=== PATIENT | female | born 1970 | race Caucasian/White ===

== ENCOUNTER 2019-07-18 12:10 | Outpatient (CLI) | payer BC, SELFPAY ==
[2019-07-18 13:00] LABS: Eosinophils # 0.3 10^3/uL (0.0-0.8); Eosinophils % 4.5 %; Hematocrit 39.4 % (37.0-47.0); Hemoglobin 13.3 g/dL (11.5-15.3); Lymphocytes # 1.7 10^3/uL (0.8-4.8); Lymphocytes % 28.5 %; Mean Corpuscular HGB Conc 33.8 g/dL (30.0-36.0); Mean Corpuscular Hemoglobin 32.8 pg (28.0-34.0); Mean Corpuscular Volume 97.3 fL (81-99); Mean Platelet Volume 9.1 fL (7.4-10.4); Monocytes # 0.3 10^3/uL (0.2-0.9); Monocytes % 5.2 %; Neutrophils # 3.6 10^3/uL (1.8-7.7); Neutrophils % 61.5 %; Nucleated Red Blood Cells % 0 %; Platelet Count 556 10^3/cmm (130-400); Red Blood Count 4.05 10^6/uL (4.1-5.3); Red Cell Distribution Width 12.5 % (12.1-15.1); White Blood Count 5.8 10^3/uL (4.0-10.0)
[2019-07-18 13:17] LABS: Ferritin 141 ng/mL (15-150); Iron 215 ug/dL (37-145)
[2019-07-18 13:51] LABS: Percent Saturation 101.4 % (20-50); Total Iron Binding Capacity 212 mcg/dl; Unsaturated Iron Binding -3 ug/dL (112-347)
--- NOTE | 2019-07-18 14:39 | ONC FU_ITS ---
Dr. Red follow up note Patient: Margie Lyle Unit #: [id number]: 1970 Dicatated By: Lizzeth Red M.D.Date of Visit:Jul 18, 2019 Onc Med Follow-up/Prog Note History of Present Illness: Mrs. Margie Lyle is a 49-year-old female with history of iron deficiency anemia which responded very well to oral iron and recently done CBC in her primary care physician's office on 01/22/2019 showed white blood count 7.1 hemoglobin 14.7 crit 42.8 MCV 96.8 platelets 551,000 iron 224 normal being 45-160 At that time her oral iron supplement were discontinued. As per patient she was first told about thrombocytosis in December 2017 at that time her platelet count was around 550,000 with a normal hemoglobin and white blood cell but recently when she went to donate blood she was told about anemia and oral iron was given she responded very well to that with normalization of hemoglobin and in January 2019, oral iron was discontinued by her primary care physician. Patient denies any history of melena or hematochezia, patient denies any history of jaundice, patient denies any history of abdominal fullness, denies any history of lymphadenopathy, denies any history of night sweats or weight loss, denies any history of recurrent fever but she has history of chronic headaches, for which she underwent surgical procedure involving base of the skull/upper neck at [facility] She also has history of chronic back pain. No history of thrombosis no history of's skin rash or itching. EGD and colonoscopy done on 03/13/2019 showed reflux esophagitis, gastritis, duodenitis and colonoscopy showed few small diverticula in the sigmoid colon Came for follow-up, denies any specific complaints except easy bruising even with the slightest trauma especially on the arms and legs. But no gum bleed no nosebleed no hematuria or melena or hematochezia no petechiae. Patient is taking a lot of [id number]-snd-[id number] herbs for healthy hair and steroid-based inhalers for asthma. Denies taking aspirin or NSAID based medication in recent past but month ago she is to take it on a regular basis. Medications: Albuterol Sulfate 1 (108 (90 base) mcg/act) Aerosol Powder, Breath Activated Inhalation PRN, Iurdlprcqk-HVSH-Azqpyvbl 1 Tablet (of 50-325-40 mg) Oral PRN, Garlic 1 Capsule Oral daily, Ibuprofen 4 Tablet (of 200 mg) Oral b.i.d., Imitrex 1 Tablet (of 25 mg) Oral PRN, Levothyroxine Sodium 1 Tablet (of 137 mcg) Oral daily, Naproxen 1 Tablet (of 500 mg) Oral b.i.d., Olmesartan Medoxomil 1 Tablet (of 20 mg) Oral daily, Symbicort Aerosol Inhalation PRN, Vitamin E 1 Capsule Oral daily Allergies: Alpha gal syndrome, Codeine Sulfate, Penicillins, and Pistachios. Review of Systems: Constitutional - Appetite is fair and weight is stable. No fever, chills, no hot flashes or night sweats. Energy level is poor, ENMT - No sinus congestion/drainage. No mouth sores. No sore throat or difficulty swallowing, Hematologic/Lymphatic - Positive for easy bruising/bleeding, Respiratory - Positive for shortness of breath. No cough. No pleuritic pain or hemoptysis, Cardiovascular - No angina pain. No palpitations, Gastrointestinal - No nausea or vomiting. No heartburn or acid reflux. No diarrhea or constipation. No blood in the stool or black stools, Genitourinary (F) - No dysuria or hematuria. No urinary frequency. No urgency or incontinence, Musculoskeletal - Positive for joint pain, Neurologic - Positive for headache, dizziness, numbness, Psychiatric - No anxiety or depression. Positive for insomnia. Vital Signs: Performed on Jul 18, 2019 13:48 Height - 67.00 in Weight - 200.6 lbs (LOW) BSA - 2.02 sq.m BMI - 31.42 (HIGH) Temperature - 97.5 F (LOW) Pulse - 68 /min Respiration - 18 /min BP - 145/91 mm(hg) (HIGH) O2 Sat - 98 % Pain - 4 Performance Status: 0 - Fully active, able to carry on all predisease activities without restrictions. (ECOG) Physical Examination: ENMT - No oral exudates, ulcers, masses, thrush or mucositis. Oropharynx clear. Tongue normal, Respiratory - Lungs are clear to auscultation without rhonchi or wheezing, Cardiovascular - Regular rate and rhythm of heart, Abdomen - Non-tender, non-distended, Good bowel sounds. No guarding or rebound tenderness. No pulsatile masses, Extremities - no edema or rash or ecchymosis. Lab/Imaging: Test performed on Apr 25, 2019 10:37 Ferritin 173.0 ng/ml Iron 149 ug/dL % Iron Saturation 81.8 % UIBC 33 ug/dL WBC 7.6 10 3/uL RBC 4.24 10 6/uL HGB 13.6 g/dL HCT 40.3 % MCV 95.0 fl MCH 32.1 pg MCHC 33.7 g/dl RDW 11.6 % Platelet Count 507 10 3/cmm MPV 8.8 fl Manual Neutrophils Abs 3.9 10 3/cmm Manual Lymphocytes Abs 3.3 10 3/cmm Manual Monocytes Abs 0.2 10 3/cmm Manual Eosinophils Abs 0.2 10 3/cmm Manual Segs % 49 % Manual Bands % 2.0 % Manual Lymphs % 38.0 % Manual Monos % 3.0 % Manual Eos % 3 % Atypical Lymphs % 5.0 % Platelet Estimate INCREASED Test performed on Feb 26, 2019 09:40 Folate, Serum 16.3 ng/mL Vitamin B12 685 pg/mL ESR (Sed Rate) 5 mm/hr Neutrophils 3.6 10 3/cmm Lymphocytes 2.6 10 3/cmm Monocytes 0.4 10 3/cmm Eosinophils 0.4 10 3/cmm Basophils 0.0 10 3/cmm Neutrophil % 50.7 % Lymphocyte % 36.9 % Monocyte % 6.3 % Eosinophil % 6.1 % Basophils % 0.0 % Impression: Isolated mild thrombocytosis, etiology unclear could be multifactorial including reactive to chronic GI blood loss as patient was recently diagnosed with iron deficiency anemia and responded well to oral iron or chronic inflammation 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 And other possibility could be underlying myeloproliferative disorder like CML, polycythemia vera, or essential thrombocytosis but less likely .History of iron deficiency anemia, successfully treated with oral iron Plan: Discussed with patient regarding her labs white blood count 5.8 hemoglobin 13.3 crit 39.4 platelets 556,000 compared to 507,000 on 04/25/2019, iron studies showed iron saturation 101.4 ferritin 141 iron 215 Clinically, patient is doing well with no new signs symptom. Follow-up lab shows persistent mild thrombocytosis with normal white blood count and hemoglobin and normal iron studies. Etiology of mild thrombocytosis remained unclear could be due to chronic inflammation patient has initial sinusitis or underlying mild COPD or early myeloproliferative disorder or due to medication like tipi-esf-fswcgrs items or steroid-based inhalers. Patient was advised to stop all the medications except olmesartan, and levothyroxine. And she can take inhaler on as-needed basis. She was advised not to take naproxen and other type of NSAIDs or aspirin-based medicine. We will repeat her CBC in 2 weeks in her PMDs office to see if there is any improvement in her platelet counts. Otherwise she will return to clinic in 2 months and will also monitor her for easy bruising and etiology is unclear could be due to medications underlying hematological disorder but less likely, as wall globin 3 workup done by her PMD include factor V mutation it was not detected. PT/PTT was within normal limits. C-reactive protein was 1.2. Patient return to clinic in 2 months with CBC. And platelet count continued to go up then will consider workup for myeloproliferative disorder like JAK2, mutation Signed By: Lizzeth Red M.D. <<Signature on File>>
== END 2019-07-18 12:11 | disposition home or self-care (01) ==
LOC: ONCMED 12:15
PROVIDERS: PCP Family Medicine; Visit Provider Internal Medicine Hematology & Oncology
DX: D47.3 Essential (hemorrhagic) thrombocythemia (principal); G89.29 Other chronic pain; M54.9 Dorsalgia, unspecified; J44.9 Chronic obstructive pulmonary disease, unspecified; Z79.51 Long term (current) use of inhaled steroids
CPT/HCPCS: 36415; 82728; 83540; 83550; 85025; G0463

== ENCOUNTER 2020-01-07 13:55 | Outpatient (CLI) | payer BC, SELFPAY ==
[2020-01-07 14:44] LABS: Basophils % 0.3 %; Eosinophils # 0.3 10^3/uL (0.0-0.8); Eosinophils % 4.2 %; Hematocrit 44.5 % (37.0-47.0); Hemoglobin 14.4 g/dL (11.5-15.3); Lymphocytes # 1.7 10^3/uL (0.8-4.8); Lymphocytes % 23.8 %; Mean Corpuscular HGB Conc 32.4 g/dL (30.0-36.0); Mean Corpuscular Hemoglobin 32.3 pg (28.0-34.0); Mean Corpuscular Volume 99.8 fL (81-99); Mean Platelet Volume 9.3 fL (7.4-10.4); Monocytes # 0.4 10^3/uL (0.2-0.9); Neutrophils # 4.72 10^3/uL (1.8-7.7); Neutrophils % 66.3 %; Nucleated Red Blood Cells % 0 %; Platelet Count 590 10^3/cmm (130-400); Red Blood Count 4.46 10^6/uL (4.1-5.3); Red Cell Distribution Width 11.9 % (12.1-15.1); White Blood Count 7.1 10^3/uL (4.0-10.0)
--- NOTE | 2020-01-07 15:56 | ONC FU_ITS ---
Dr. Red follow up note Patient: Margie Lyle Unit #: [id number]: 1970 Dicatated By: Lizzeth Red M.D.Date of Visit:Jan 07, 2020 Onc Med Follow-up/Prog Note History of Present Illness: Mrs. Margie Lyle is a 49-year-old female with history of iron deficiency anemia which responded very well to oral iron and recently done CBC in her primary care physician's office on 01/22/2019 showed white blood count 7.1 hemoglobin 14.7 crit 42.8 MCV 96.8 platelets 551,000 iron 224 normal being 45-160 At that time her oral iron supplement were discontinued. As per patient she was first told about thrombocytosis in December 2017 at that time her platelet count was around 550,000 with a normal hemoglobin and white blood cell but recently when she went to donate blood she was told about anemia and oral iron was given she responded very well to that with normalization of hemoglobin and in January 2019, oral iron was discontinued by her primary care physician. Patient denies any history of melena or hematochezia, patient denies any history of jaundice, patient denies any history of abdominal fullness, denies any history of lymphadenopathy, denies any history of night sweats or weight loss, denies any history of recurrent fever but she has history of chronic headaches, for which she underwent surgical procedure involving base of the skull/upper neck at [facility] She also has history of chronic back pain. No history of thrombosis no history of's skin rash or itching. EGD and colonoscopy done on 03/13/2019 showed reflux esophagitis, gastritis, duodenitis and colonoscopy showed few small diverticula in the sigmoid colon Came for follow-up, denies specific complaints, no fever chills, no nausea or vomiting, no diarrhea constipation, no headaches blurred vision double vision.No night sweats, no weight loss, no recurrent fevers, no peripheral lymphadenopathy, no abdominal fullness Medications: Albuterol Sulfate 1 (108 (90 base) mcg/act) Aerosol Powder, Breath Activated Inhalation PRN, Wlpoiordau-BDOM-Dlicyqjh 1 Tablet (of 50-325-40 mg) Oral PRN, Garlic 1 Capsule Oral daily, Ibuprofen 4 Tablet (of 200 mg) Oral b.i.d., Imitrex 1 Tablet (of 25 mg) Oral PRN, Levothyroxine Sodium 1 Tablet (of 137 mcg) Oral daily, Naproxen 1 Tablet (of 500 mg) Oral b.i.d., Olmesartan Medoxomil 1 Tablet (of 20 mg) Oral daily, Symbicort Aerosol Inhalation PRN, Vitamin E 1 Capsule Oral daily Allergies: Alpha gal syndrome, Codeine Sulfate, Penicillins, and Pistachios. Review of Systems: Review of Systems is not available for this patient. Vital Signs: Performed on Jan 07, 2020 15:23 Height - 67.00 in Weight - 198.6 lbs (LOW) BSA - 2.02 sq.m BMI - 31.11 (HIGH) Temperature - 98.6 F Pulse - 86 /min Respiration - 24 /min BP - 128/82 mm(hg) O2 Sat - 96 % Pain - 0 Performance Status: 0 - Fully active, able to carry on all predisease activities without restrictions. (ECOG) Physical Examination: ENMT - No mouth sores, no thrush, no jaundice, Respiratory - Lungs are clear, Cardiovascular - Regular rate and rhythm of heart, Abdomen - Soft, bowel sounds present, Extremities - No visible edema, no peripheral lymphadenopathy. Lab/Imaging: Test performed on Jul 18, 2019 12:25 Ferritin 141 ng/mL Iron 215 ug/dL UIBC -3 ug/dL WBC 5.8 10 3/uL RBC 4.05 10 6/uL HGB 13.3 g/dL HCT 39.4 % MCV 97.3 fL MCH 32.8 pg MCHC 33.8 g/dL RDW 12.5 % Platelet Count 556 10 3/cmm MPV 9.1 fL Neutrophils 3.6 10 3/uL Lymphocytes 1.7 10 3/uL Monocytes 0.3 10 3/uL Eosinophils 0.3 10 3/uL Basophils 0.0 10 3/uL Neutrophil % 61.5 % Lymphocyte % 28.5 % Monocyte % 5.2 % Eosinophil % 4.5 % Basophils % 0.0 % Impression: Isolated mild thrombocytosis, etiology unclear could be multifactorial including reactive to chronic GI blood loss as patient was recently diagnosed with iron deficiency anemia and responded well to oral iron or chronic inflammation 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 And other possibility could be underlying myeloproliferative disorder like CML, polycythemia vera, or essential thrombocytosis but less likely .History of iron deficiency anemia, successfully treated with oral iron Plan: Discussed with patient regarding her labs white blood count 7.1 hemoglobin 14.4 crit 44.5 platelets 590,000 compared to 5 and 56,000 on July 18, 2019 Clinically, patient is doing well with no new signs symptoms, follow-up labs shows persistent mild/moderate thrombocytosis, at this point will consider Cristian 2 mutation to rule out essential thrombocytosis/myeloproliferative disorder and also check sed rate to rule out underlying chronic inflammation causing thrombocytosis and return to clinic in 1 month with CBC Signed By: Lizzeth Red M.D. <<Signature on File>>
[2020-01-07 16:47] LABS: Erythrocyte Sedimentation Rate 5 mm/hr (0-15)
== END 2020-01-07 13:56 | disposition home or self-care (01) ==
LOC: ONCMED 13:59
PROVIDERS: PCP Family Medicine; Visit Provider Internal Medicine Hematology & Oncology
DX: D47.3 Essential (hemorrhagic) thrombocythemia (principal); D50.9 Iron deficiency anemia, unspecified
CPT/HCPCS: 36415; 81270; 81403; 85025; 85651; 99214

== ENCOUNTER 2020-03-18 14:36 | Outpatient (CLI) | payer BC, SELFPAY ==
[2020-03-18 14:55] LABS: Basophils % 0.4 %; Eosinophils # 0.3 10^3/uL (0.0-0.8); Hematocrit 43.9 % (37.0-47.0); Hemoglobin 14.5 g/dL (11.5-15.3); Lymphocytes % 29.2 %; Mean Corpuscular Volume 99.8 fL (81-99); Mean Platelet Volume 8.9 fL (7.4-10.4); Monocytes # 0.4 10^3/uL (0.2-0.9); Monocytes % 5.6 %; Neutrophils # 4.07 10^3/uL (1.8-7.7); Neutrophils % 60.4 %; Nucleated Red Blood Cells % 0 %; Platelet Count 571 10^3/cmm (130-400); Red Cell Distribution Width 12.1 % (12.1-15.1); White Blood Count 6.8 10^3/uL (4.0-10.0)
--- NOTE | 2020-03-20 10:41 | ONC FU_ITS ---
Dr. Red follow up note Patient: Margie Lyle Unit #: [id number]: 1970 Dicatated By: Lizzeth Red M.D.Date of Visit:Mar 18, 2020 Onc Med Follow-up/Prog Note History of Present Illness: Mrs. Margie Lyle is a 50-year-old female with history of iron deficiency anemia which responded very well to oral iron and recently done CBC in her primary care physician's office on 01/22/2019 showed white blood count 7.1 hemoglobin 14.7 crit 42.8 MCV 96.8 platelets 551,000 iron 224 normal being 45-160 At that time her oral iron supplement were discontinued. As per patient she was first told about thrombocytosis in December 2017 at that time her platelet count was around 550,000 with a normal hemoglobin and white blood cell but recently when she went to donate blood she was told about anemia and oral iron was given she responded very well to that with normalization of hemoglobin and in January 2019, oral iron was discontinued by her primary care physician.Cristian 2 mutation checked on January 07, 2020, not detected but a type II frame shift mutation is detected in exon 9 of CA LR, which is usually associated with essential thrombocythemia or primary myelofibrosis Patient denies any history of melena or hematochezia, patient denies any history of jaundice, patient denies any history of abdominal fullness, denies any history of lymphadenopathy, denies any history of night sweats or weight loss, denies any history of recurrent fever but she has history of chronic headaches, for which she underwent surgical procedure involving base of the skull/upper neck at [facility] She also has history of chronic back pain. No history of thrombosis no history of's skin rash or itching. EGD and colonoscopy done on 03/13/2019 showed reflux esophagitis, gastritis, duodenitis and colonoscopy showed few small diverticula in the sigmoid colon Came for follow-up, denies any specific complaints, no fever chills, no nausea or vomiting, no diarrhea or constipation, no headaches. Medications: Albuterol Sulfate 1 (108 (90 base) mcg/act) Aerosol Powder, Breath Activated Inhalation PRN, Wqhztugujq-ZIMH-Fozwksce 1 Tablet (of 50-325-40 mg) Oral PRN, Garlic 1 Capsule Oral daily, Ibuprofen 4 Tablet (of 200 mg) Oral b.i.d., Imitrex 1 Tablet (of 25 mg) Oral PRN, Levothyroxine Sodium 1 Tablet (of 137 mcg) Oral daily, Naproxen 1 Tablet (of 500 mg) Oral b.i.d., Olmesartan Medoxomil 1 Tablet (of 20 mg) Oral daily, Symbicort Aerosol Inhalation PRN, Vitamin E 1 Capsule Oral daily Allergies: Alpha gal syndrome, Codeine Sulfate, Penicillins, and Pistachios. Review of Systems: Constitutional - Appetite is fair and weight is stable. No fever, chills, no hot flashes or night sweats. Energy level is poor, ENMT - No sinus congestion/drainage. No mouth sores. No sore throat or difficulty swallowing, Hematologic/Lymphatic - Positive for easy bruising/bleeding, Respiratory - Positive for shortness of breath. No cough. No pleuritic pain or hemoptysis, Cardiovascular - No angina pain. No palpitations, Gastrointestinal - No nausea or vomiting. No heartburn or acid reflux. No diarrhea or constipation. No blood in the stool or black stools, Genitourinary (F) - No dysuria or hematuria. No urinary frequency. No urgency or incontinence, Musculoskeletal - Positive for joint pain, Neurologic - Positive for headache, dizziness, numbness, Psychiatric - No anxiety or depression. Positive for insomnia. Vital Signs: Performed on Mar 18, 2020 15:57 Height - 67.00 in Weight - 196.8 lbs (LOW) BSA - 2.01 sq.m BMI - 30.82 (HIGH) Temperature - 98.6 F Pulse - 73 /min Respiration - 20 /min BP - 143/88 mm(hg) (HIGH) O2 Sat - 96 % Pain - 7 Performance Status: 0 - Fully active, able to carry on all predisease activities without restrictions. (ECOG) Physical Examination: ENMT - No mouth sores, no thrush, no jaundice, Respiratory - Lungs are clear to auscultation, Cardiovascular - Regular rate and rhythm of heart, Abdomen - Soft, bowel sounds present, Extremities - No visible edema. Lab/Imaging: Test performed on Feb 11, 2020 15:45 WBC 5.1 10^9/L RBC 4.18 10^12/L HGB 14.2 g/dL HCT 41.3 % MCV 98.8 fl MCH 34.0 pg MCHC 34.4 g/dL RDW 11.6 % Platelet Count 550 10^9/L MPV 9.5 fL Neutrophils (Gran) 2754 10^9/L Lymphocytes 1729 10^9/L Monocytes 326 10^9/L Eosinophils 270 10^9/L Basophils 20 10^9/L Manual Lymphocytes 33.9 % Manual Monocytes 6.4 % Manual Eosinophils 5.3 % Manual Basophils 0.4 % Test performed on Jan 07, 2020 15:55 ESR (Sed Rate) 5 mm/hr Test performed on Jan 07, 2020 14:08 Neutrophil % 66.3 % Lymphocyte % 23.8 % Monocyte % 5.0 % Eosinophil % 4.2 % Basophils % 0.3 % NRBC % 0 % Impression: Isolated mild thrombocytosis,, Could be due to essential thrombocythemia or primary myelofibrosis as Cristian 2 mutation was not detected when checked on January 07, 2020, but a type II frame shift mutation is detected in exon 9 of CALR, which is associated with essential thrombocythemia or primary myelofibrosis .History of iron deficiency anemia, successfully treated with oral iron Plan: Discussed with patient regarding her labs white blood count 6.8 hemoglobin 14.5 hematocrit 43.9 platelets 571,000 and Cristian 2 mutation was not detected but testing showed type II frame shift mutation is detected in exon 9 of CA LR, which is associated with essential thrombocythemia or primary myelofibrosis Discussed with patient regarding this molecular testing and about the abnormalities reported, based on that her isolated thrombocytosis could be due to either essential thrombocythemia or primary myelofibrosis, to confirm that, will consider bone marrow evaluation and she will return to clinic 2 weeks after marrow evaluation for further discussion and planning. Signed By: Lizzeth Red M.D. <<Signature on File>>
== END 2020-03-18 14:37 | disposition home or self-care (01) ==
PROVIDERS: PCP Family Medicine; Visit Provider Internal Medicine Hematology & Oncology
DX: D47.3 Essential (hemorrhagic) thrombocythemia (principal); Z86.2 Personal history of diseases of the blood and blood-forming organs and certain disorders involving the immune mechanism
CPT/HCPCS: 85025; 99214

== ENCOUNTER 2020-07-21 14:10 | Outpatient (CLI) | payer BC, SELFPAY ==
[2020-07-22 16:17] LABS: Alternaria Alternata (M6) Ige <0.10 kU/L; Alternaria Class 0; Bermuda Class 0; Bermuda Grass (G2) Ige <0.10 kU/L; Cat Dander (E1) Ige 2.42 kU/L; Cat Dander Class 2; Common Ragweed (Short) (W1) Ig 0.71 kU/L; D. Farinae Class 4; Dermatophagoides Class 4; Dog Dander (E5) Ige 2.32 kU/L; Dog Dander Class 2; Elm (T8) Ige 0.14 kU/L; Elm Class 0/1; English Plantain (W9) Ige <0.10 kU/L; English Plantain Class 0; House Dust (Greer) (H1) Ige 4.71 kU/L; House Dust (Hollister- Stier) 4.46 kU/L; House Dust Class 3; Immunoglobulin E 260 kU/L (<OR=114); Immunoglobulin E 276 kU/L (<OR=114); Johnson Grass (G10) Ige <0.10 kU/L; Johnson Grass Cl 0; June Grass Class 0/1; Lamb'S Quarters (Goose Foot) 0.13 kU/L; Lamb'S Quarters Class 0/1; Maple (Box Elder) (T1) Ige <0.10 kU/L; Maple Class 0; Meadow Fescue Class 0/1; Mucor Racemosus Class 0; Oak (T7) Ige <0.10 kU/L; Oak Class 0; Orchard Grass (Cocksfoot) (G3) <0.10 kU/L; Penicillium Class 0; Penicillium Notatum (M1) Ige <0.10 kU/L; Perennial Rye Grass (G5) Ige <0.10 kU/L; Perennial Rye Grass Class 0; Ragweeed Class 2; Rough Marsh Elder (W16) Ige <0.10 kU/L; Rough Marsh Elder Class 0; Sweet Vernal Class 0; Sweet Vernal Grass (G1) Ige <0.10 kU/L; Timothy Grass (G6) Ige <0.10 kU/L; Timothy Grass Class 0
[2020-07-24 18:22] LABS: Aspergillus Fumigatus, Igg Ab, 46.5 mg/L (<=102)
== END 2020-07-21 14:11 | disposition home or self-care (01) ==
PROVIDERS: PCP Family Medicine; Visit Provider Internal Medicine Pulmonary Disease
DX: R05 Cough (principal)
CPT/HCPCS: 36415; 82785; 86003

== ENCOUNTER 2020-11-25 09:28 | Outpatient (CLI) | payer BC, SELFPAY ==
[2020-11-25 09:59] LABS: Basophils % 0.5 %; Eosinophils # 0.3 10^3/uL (0.0-0.8); Eosinophils % 3.8 %; Hematocrit 43.5 % (37.0-47.0); Hemoglobin 14.7 g/dL (11.5-15.3); Lymphocytes # 2.7 10^3/uL (0.8-4.8); Lymphocytes % 32.3 %; Mean Corpuscular HGB Conc 33.8 g/dL (30.0-36.0); Mean Corpuscular Hemoglobin 33.4 pg (28.0-34.0); Mean Corpuscular Volume 98.9 fL (81-99); Monocytes # 0.6 10^3/uL (0.2-0.9); Monocytes % 7.7 %; Neutrophils # 4.57 10^3/uL (1.8-7.7); Neutrophils % 55.3 %; Nucleated Red Blood Cells % 0 %; Platelet Count 662 10^3/cmm (130-400); Red Cell Distribution Width 12.1 % (12.1-15.1); White Blood Count 8.3 10^3/uL (4.0-10.0)
[2020-11-25 10:33] LABS: Alanine Aminotransferase 11 U/L (0-33); Albumin Level 4.1 g/dL (3.5-5.2); Alkaline Phosphatase 60 IU/L (35-105); Anion Gap 12.6 (5-19); Aspartate Amino Transferase 19 U/L (0-32); Blood Urea Nitrogen 20 mg/dL (6-20); Calcium 8.4 mg/dL (8.5-10.5); Carbon Dioxide 25 mmol/L (22-29); Chloride 108 mmol/L (98-107); Globulin 2.3 g/dL (1.3-4.6); Glucose 107 mg/dL (65-115); Osmolality Calculated 295 mOsm/kg (285-295); Potassium 4.6 mmol/L (3.5-5.1); Sodium 141 mmol/L (136-145); Total Bilirubin 0.2 mg/dL (0.15-1.2); Total Protein 6.4 g/dL (6.6-8.7)
== END 2020-11-25 09:29 | disposition home or self-care (01) ==
LOC: ONCMED 09:30
PROVIDERS: PCP Family Medicine; Visit Provider Internal Medicine Hematology & Oncology
DX: D47.3 Essential (hemorrhagic) thrombocythemia (principal)
CPT/HCPCS: 80053; 85025

== ENCOUNTER 2020-11-27 05:53 | Outpatient (CLI) | payer BC, SELFPAY ==
--- NOTE | 2020-11-27 12:13 | ONC FU_ITS ---
Dr. Red follow up note Patient: Margie Lyle Unit #: [id number]: 1970 Dicatated By: Lizzeth Red M.D.Date of Visit:Nov 27, 2020 Onc Med Follow-up/Prog Note History of Present Illness: Mrs. Margie Lyle is a 50-year-old female with history of iron deficiency anemia which responded very well to oral iron and recently done CBC in her primary care physician's office on 01/22/2019 showed white blood count 7.1 hemoglobin 14.7 crit 42.8 MCV 96.8 platelets 551,000 iron 224 normal being 45-160 At that time her oral iron supplement were discontinued. 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 No history of thrombosis no history of's skin rash or itching. EGD and colonoscopy done on 03/13/2019 showed reflux esophagitis, gastritis, duodenitis and colonoscopy showed few small diverticula in the sigmoid colon Came for follow-up, denies any specific complaints, no fever chills, known nausea or vomiting, no diarrhea constipation, no headaches or blurred vision or double vision, no peripheral numbness, no generalized weakness and fatigue Medications: Albuterol Sulfate 1 (108 (90 base) mcg/act) Aerosol Powder, Breath Activated Inhalation PRN, Mnnqecwoba-CGAL-Cinboroq 1 Tablet (of 50-325-40 mg) Oral PRN, Garlic 1 Capsule Oral daily, Ibuprofen 4 Tablet (of 200 mg) Oral b.i.d., Imitrex 1 Tablet (of 25 mg) Oral PRN, Levothyroxine Sodium 1 Tablet (of 137 mcg) Oral daily, Naproxen 1 Tablet (of 500 mg) Oral b.i.d., Olmesartan Medoxomil 1 Tablet (of 20 mg) Oral daily, Symbicort Aerosol Inhalation PRN, Vitamin E 1 Capsule Oral daily Allergies: Alpha gal syndrome, Codeine Sulfate, Penicillins, and Pistachios. Review of Systems: Review of Systems is not available for this patient. Vital Signs: Performed on Nov 27, 2020 09:34 Height - 67.00 in Weight - 192.4 lbs (LOW) BSA - 1.99 sq.m BMI - 30.13 (HIGH) Temperature - 98.3 F (LOW) Pulse - 67 /min Respiration - 17 /min BP - 163/86 mm(hg) (HIGH) O2 Sat - 97 % Pain - 0 Performance Status: 0 - Fully active, able to carry on all predisease activities without restrictions. (ECOG) Physical Examination: ENMT - No mouth sores, no thrush, no jaundice no cervical lymphadenopathy, Respiratory - Lungs are clear to auscultation, Cardiovascular - Regular rate and rhythm of heart, Abdomen - Soft, bowel sounds present, Extremities - No visible edema. Lab/Imaging: Most recent lab results are not available for this patient. Impression: Isolated mild thrombocytosis,, Could be due to essential thrombocythemia or primary myelofibrosis as Cristian 2 mutation was not detected when checked on January 07, 2020, but a type II frame shift mutation is detected in exon 9 of CALR, which is associated with essential thrombocythemia or primary myelofibrosis .History of iron deficiency anemia, successfully treated with oral iron Plan: Discussed with patient regarding her labs white blood count 8.3 hemoglobin 14.7 hematocrit 43.5 platelets 662,000 compared to 571,000 previously Clinically, patient doing well with no new signs symptom but had follow-up labs shows persistent progressive isolated thrombocytosis and as per molecular testing done recently showed type II frame shift mutation in exon 9 of CALR, usually associated with essential thrombocythemia or primary myelofibrosis for which bone marrow is under consideration, as per patient because of Covid guideline she could not get her bone marrow done earlier but now ready for the procedure, we will schedule for bone marrow evaluation and then she will return to clinic 1 week after bone marrow evaluation with CBC Patient was advised to continue with oral baby aspirin and maintain hydration Signed By: Lizzeth Red M.D. <<Signature on File>>
== END 2020-11-27 05:54 | disposition home or self-care (01) ==
LOC: ONCMED 05:55
PROVIDERS: PCP Family Medicine; Visit Provider Internal Medicine Hematology & Oncology
DX: D47.3 Essential (hemorrhagic) thrombocythemia (principal); D75.81 Myelofibrosis; Z79.899 Other long term (current) drug therapy
CPT/HCPCS: 99214

== ENCOUNTER 2020-12-22 09:30 | Day surgery (SDC) | payer BC, SELFPAY ==
[2020-12-22 09:50] VITALS: BP 181/93; PULSE 101; RESP 18; TEMP 36.8; O2SAT 97
[2020-12-22] MEDS: sodium chloride 0.9% 1,000 ML 30 ML IV (10:15)
[2020-12-22 10:21] LABS: Basophils % 0.6 %; Eosinophils # 0.2 10^3/uL (0.0-0.8); Eosinophils % 3.4 %; Hematocrit 44.5 % (37.0-47.0); Hemoglobin 14.8 g/dL (11.5-15.3); Lymphocytes # 2.6 10^3/uL (0.8-4.8); Lymphocytes % 37.4 %; Mean Corpuscular HGB Conc 33.3 g/dL (30.0-36.0); Mean Corpuscular Hemoglobin 33.3 pg (28.0-34.0); Mean Platelet Volume 9.2 fL (7.4-10.4); Monocytes # 0.4 10^3/uL (0.2-0.9); Neutrophils # 3.59 10^3/uL (1.8-7.7); Neutrophils % 52.3 %; Nucleated Red Blood Cells % 0 %; Platelet Count 603 10^3/cmm (130-400); Red Blood Count 4.45 10^6/uL (4.1-5.3); Red Cell Distribution Width 11.9 % (12.1-15.1); White Blood Count 6.9 10^3/uL (4.0-10.0)
[2020-12-22 11:31] VITALS: BP 119/79; PULSE 63; RESP 16; TEMP 36.1; O2SAT 100
--- NOTE | 2020-12-22 11:33 | PM.BMB ---
Bone Marrow Biopsy Bone Marrow Biopsy: I was consulted by [] office regarding bone marrow biopsy on [Margie Lyle]. Briefly, the patient is a [50] year old [female] with [isolated thrombocythemia]. In the Outpatient Services Department, with nursing staff and laboratory technologists in attendance, the procedure was discussed with the patient. Appropriate consent form had been signed. Appropriate alternatives, benefits and risks of procedure were discussed with the patient and she was pre-operatively assessed with a history and physical by myself and cleared for the biopsy procedure. The patient did request IV sedation and that was provided by the Anesthesia Department. Under aseptic condition right posterior iliac area was cleaned and prepped, local anesthesia was given, about 10 cc of bone marrow aspirate and core biopsy was obtained, patient tolerated procedure well, specimen was sent for routine histopathology, flow cytometry and cytogenetics and FISH for MPS. Postprocedure nursing instructions were given. Thank you for allowing me to participate in this patient's care and diagnosis. Coding Level of Care Code Acute Utility Appraiser for Kathya Oconnor
--- NOTE | 2020-12-22 11:39 | ANES.PREANE2 ---
Pre-Anesthetic Assessment Pre-Anesthetic Assessment: Height/Weight: Height 1.7 m Weight 82.554 kg Temp Pulse Resp BP Pulse Ox 98.3 F 101 H 18 181/93 97 12/22/20 09:50 12/22/20 09:50 12/22/20 09:50 12/22/20 09:50 12/22/20 09:50 Proposed Procedure: Operation Date: 12/22/20 11:00 Proposed Procedures p Bone Marrow Biospy With Aspiration D47.3 Thrombocytosis(Not Applicable) - Lizzeth Red MD Was Beta Saul taken within 24 hours: N/A Was Clonidine taken within 24 hours: N/A Last intake: Intake Last Liquid Date 12/21/20 Last Liquid Time 23:45 Last Solid Date 12/21/20 Last Solid Time 23:45 Social: Social History: No alcohol and No tobacco Exam: Pre-Anes Outpt Exam: alert, oriented x 3, clear to auscultation bilaterally and regular rate & rhythm Airway: Submandibular: WNL Cervical ROM: WNL MP: 2 Dentition: Full Pulmonary: Pulmonary: Asthma Metabolic: Metabolic: Thyroid Neuropsych: Neuropsych: Anxiety Anesthetic Plan: ASA status: 2 Anesthesia: MAC Risk of > 500 ml blood loss (7ml/kg in children): No Meds/Allergies Current Medications: Current Medications Generic Name Dose Route Start Last Admin Trade Name Freq PRN Reason Stop Dose Admin Sodium Chloride 1,000 mls @ 30 ml s/hr 12/22/20 09:45 12/22/20 10:15 Sodium Chloride 0.9% IV 12/23/20 09:44 30 mls/hr .Q24H CURTIS Administration PFSH Anesthesia PFSH: Medical History Bronchitis Social History (Updated 10/15/20 @ 14:38 by Trace Nguyen LPN) Smoking and tobacco status: former smoker Quit status (tobacco): has quit using tobacco Year quit tobacco: 1989 1yr hx Second hand smoke exposure: Yes Smoking risk assessment/counseling performed?: Yes Alcohol intake: current Alcohol intake frequency: holidays/special occasions only Desire information about alcohol rehabilitation?: No Counseling given: No Lives independently: Yes Household members: spouse Housing: House Marital status: service: No Current occupational status: employed Pets and animals: Yes History of recent travel: No Current gender identity: Female Data Anesthesia CBC & Chem 7: 12/22/20 10:08 Other Labs: Laboratory Results - last 48 hr 12/22/20 10:08 WBC 6.9 RBC 4.45 Hgb 14.8 Hct 44.5 MCV 100.0 H MCH 33.3 MCHC 33.3 RDW 11.9 L Plt Count 603 H MPV 9.2 Neut % (Auto) 52.3 Lymph % (Auto) 37.4 [place] % (Auto) 6.0 Eos % (Auto) 3.4 Baso % (Auto) 0.6 Neut # (Auto) 3.59 Lymph # (Auto) 2.6 [place] # (Auto) 0.4 Eos # (Auto) 0.2 Baso # (Auto) 0.0 Nucleated RBC % (auto) 0 Nucleated RBCs # 0.0 Cardiac Studies: No Data to Display
[2020-12-22 11:42] VITALS: BP 123/67; PULSE 48; RESP 16; TEMP 36.2; O2SAT 100
[2020-12-22 11:51] VITALS: BP 156/92; PULSE 53; RESP 18; O2SAT 100
--- NOTE | 2020-12-22 11:58 | PC.NURSE ---
1142 Procedure site with dressing clean dry and intact.
--- NOTE | 2020-12-22 11:59 | PC.NURSE ---
1158 Procedure site dressing clean dry and intact.
--- NOTE | 2020-12-22 15:03 | ANE.PACU2 ---
Inpatient post-anesthesia follow up: Airway intact: Yes Vital signs: Temperature 97.2 F Pulse Rate 53 Respiratory Rate 18 Blood Pressure 156/92 Pulse Oximetry 100 Oxygen Delivery Me thod Room Air Oxygen Flow Rate 3 Fraction of Inspir ed Oxygen Hydration adequate: Yes Nausea and vomiting: No Pain level: 1 Mental status: Baseline
[2020-12-24 10:20] LABS: Miscellaneous Test See Scanned Lab Rpt
[2020-12-29 12:45] LABS: Miscellaneous Test See Scanned Lab Rpt
== END 2020-12-22 12:30 | disposition home or self-care (01) ==
PROVIDERS: PCP Family Medicine; Visit Provider Internal Medicine Hematology & Oncology
PROC: 07DT3ZX Extraction of Bone Marrow, Percutaneous Approach, Diagnostic (ICD-10-PCS; CPT 38222; principal; 2020-12-22 11:00)
DX: D47.3 Essential (hemorrhagic) thrombocythemia (principal); J45.909 Unspecified asthma, uncomplicated; F41.9 Anxiety disorder, unspecified; Z87.891 Personal history of nicotine dependence
CPT/HCPCS: 36415; 38222; 85025; 88184; 88185; 88237; 88264; 88305; 88311; 88367; 88374; 96360; 96361; J2704; J7030

== ENCOUNTER 2021-01-12 12:03 | Outpatient (CLI) | payer BC, SELFPAY ==
[2021-01-12 12:36] LABS: Basophils % 0.4 %; Eosinophils # 0.3 10^3/uL (0.0-0.8); Eosinophils % 3.7 %; Hematocrit 43.5 % (37.0-47.0); Hemoglobin 14.7 g/dL (11.5-15.3); Lymphocytes # 2.4 10^3/uL (0.8-4.8); Lymphocytes % 33.1 %; Mean Corpuscular HGB Conc 33.8 g/dL (30.0-36.0); Mean Corpuscular Hemoglobin 33.1 pg (28.0-34.0); Monocytes # 0.4 10^3/uL (0.2-0.9); Monocytes % 5.7 %; Neutrophils # 4.15 10^3/uL (1.8-7.7); Neutrophils % 56.7 %; Nucleated Red Blood Cells % 0 %; Platelet Count 691 10^3/cmm (130-400); Red Blood Count 4.44 10^6/uL (4.1-5.3); Red Cell Distribution Width 11.8 % (12.1-15.1); White Blood Count 7.3 10^3/uL (4.0-10.0)
--- NOTE | 2021-01-12 14:24 | ONC FU_ITS ---
Dr. Red follow up note Patient: Margie Lyle Unit #: [id number]: 1970 Dicatated By: Lizzeth Red M.D.Date of Visit:Jan 12, 2021 Onc Med Follow-up/Prog Note History of Present Illness: Mrs. Margie Lyle is a 50-year-old female with history of iron deficiency anemia which responded very well to oral iron and recently done CBC in her primary care physician's office on 01/22/2019 showed white blood count 7.1 hemoglobin 14.7 crit 42.8 MCV 96.8 platelets 551,000 iron 224 normal being 45-160 At that time her oral iron supplement were discontinued. As per patient she was first told about thrombocytosis in December 2017 at that time her platelet count was around 550,000 with a normal hemoglobin and white blood cell but recently when she went to donate blood she was told about anemia and oral iron was given she responded very well to that with normalization of hemoglobin and in January 2019, oral iron was discontinued by her primary care physician. Patient denies any history of melena or hematochezia, patient denies any history of jaundice, patient denies any history of abdominal fullness, denies any history of lymphadenopathy, denies any history of night sweats or weight loss, denies any history of recurrent fever but she has history of chronic headaches, for which she underwent surgical procedure involving base of the skull/upper neck at [facility] She also has history of chronic back pain. No history of thrombosis no history of's skin rash or itching. EGD and colonoscopy done on 03/13/2019 showed reflux esophagitis, gastritis, duodenitis and colonoscopy showed few small diverticula in the sigmoid colon as Cristian 2 mutation checked on January 07, 2020, not detected but a type II frame shift mutation is detected in exon 9 of CA LR, which is usually associated with essential thrombocythemia or primary myelofibrosis so Bone marrow evaluation was done on 12/22/2020 showed moderate to severe thrombocytosis, marked megakaryocytic hyperplasia, with several clusters of megakaryocytes and abnormal megakaryocyte forms noted. No significant reticulin fibrosis seen. No dyspoietic features are megaloblastic features. Flow cytometry and cytogenetic negative Came for follow-up, denies any specific complaints, no fever chills, no nausea or vomiting, no diarrhea constipation, no nosebleed or gum bleeding petechia or ecchymosis, no abdominal fullness, no night sweats, no weight loss, no recurrent fever, no skin rash, no history of thrombosis, patient denies any history of hyperlipidemia, Medications: Albuterol Sulfate 1 (108 (90 base) mcg/act) Aerosol Powder, Breath Activated Inhalation PRN, Eohdaejxkh-ICMR-Yyoawzwy 1 Tablet (of 50-325-40 mg) Oral PRN, Garlic 1 Capsule Oral daily, Ibuprofen 4 Tablet (of 200 mg) Oral b.i.d., Imitrex 1 Tablet (of 25 mg) Oral PRN, Levothyroxine Sodium 1 Tablet (of 137 mcg) Oral daily, Naproxen 1 Tablet (of 500 mg) Oral b.i.d., Olmesartan Medoxomil 1 Tablet (of 20 mg) Oral daily, Symbicort Aerosol Inhalation PRN, Vitamin E 1 Capsule Oral daily Allergies: Alpha gal syndrome, Codeine Sulfate, Penicillins, and Pistachios. Review of Systems: Review of Systems is not available for this patient. Vital Signs: Performed on Jan 12, 2021 14:12 Height - 67.00 in Weight - 188.8 lbs (LOW) BSA - 1.97 sq.m BMI - 29.57 Temperature - 98.8 F Pulse - 67 /min Respiration - 18 /min BP - 127/79 mm(hg) O2 Sat - 97 % Pain - 4 Fatigue - 0 Performance Status: 0 - Fully active, able to carry on all predisease activities without restrictions. (ECOG) Physical Examination: ENMT - No mouth sores, no thrush, no jaundice, Respiratory - Lungs are clear to auscultation, Cardiovascular - Regular rate and rhythm of heart, Abdomen - Soft, bowel sounds present, Extremities - No visible edema. Lab/Imaging: Most recent lab results are not available for this patient. Impression: Isolated mild thrombocytosis,, Could be due to essential thrombocythemia or primary myelofibrosis as Cristian 2 mutation was not detected when checked on January 07, 2020, but a type II frame shift mutation is detected in exon 9 of CALR, which is associated with essential thrombocythemia or primary myelofibrosis, Bone marrow evaluation done on 12/22/2020 showed marked megakaryocytic hyperplasia with several clusters of megakaryocytes and abnormal megakaryocytes forms noted. No significant reticulin fibrosis is seen. Flow cytometry and cytogenetics/FISH was unremarkable .History of iron deficiency anemia, successfully treated with oral iron Plan: Discussed with patient regarding her labs white blood count 7.3 hemoglobin 14.7 hematocrit 43.5 platelets 691,000 compared to 662 previously and her bone marrow findings shows increased megakaryocytes with no increase in reticulin fibrosis, consistent with essential thrombocythemia Clinically, patient is doing well and with no new signs symptom suggestive of thrombosis or bleeding, her bone marrow confirmed essential thrombocythemia, as per NCCN guidelines, she is a low risk e.g. less than 60-year-old, no history of thrombosis but PATRICK R+ mutation no obvious cardiac risk factors. No history of bleeding. No abdominal fullness or splenomegaly on exam. Based on this, we will start her on baby aspirin once a day and then monitor her, she return to clinic in 2 months with CBC and monitor her for new thrombosis, or bleeding or splenomegaly or leukocytosis or any B symptoms,. Signed By: Lizzeth Red M.D. <<Signature on File>>
== END 2021-01-12 12:04 | disposition home or self-care (01) ==
LOC: ONCMED 12:05
PROVIDERS: PCP Family Medicine; Visit Provider Internal Medicine Hematology & Oncology
DX: D47.3 Essential (hemorrhagic) thrombocythemia (principal); D50.9 Iron deficiency anemia, unspecified; Z79.899 Other long term (current) drug therapy
CPT/HCPCS: 36415; 85025; 99214